=== PATIENT | male | born 1945 | race Caucasian/White ===

== ENCOUNTER 2021-05-16 16:29 | Emergency (ER) | payer OTHER, MEDICARE ==
[2021-05-16 16:34] VITALS: BP 119/67; PULSE 70; TEMP 97.6; BMI 24.2
[2021-05-16] MEDS ORDERED: ONDANSETRON 4 MG/2 ML VIAL IVPUSH ONE (17:54)
[2021-05-16] MEDS ORDERED: SODIUM CHLORIDE 500 ML IV STA (17:54)
== END 2021-05-16 18:30 | disposition left against medical advice (07) ==
LOC: JER 16:29
DX: R10.9 Unspecified abdominal pain (principal); R11.0 Nausea
CPT/HCPCS: 99281-25